=== PATIENT | female | born 1995 | race Caucasian/White ===

== ENCOUNTER 2019-04-21 15:40 | Emergency (ER) | payer SELFPAY ==
[~2019-04-21] VITALS: Ht 154.9 cm; Wt 58.1 kg
[2019-04-21 15:46] VITALS: BP 140/98
[2019-04-21 18:36] LABS: Urine Bacteria FEW /hpf (None Seen); Urine Blood Negative /uL (Negative); Urine Specific Gravity 1.022 (1.001-1.035); Urine WBC 5 /hpf (0 - 5)
[2019-04-21] MEDS ORDERED: PHENAZOPYRIDINE HCL 100 MG TAB PO ONE (19:15)
[2019-04-21] MEDS ORDERED: cefTRIAXone SOD 1,000 MG VL IM ONE (19:15)
== END 2019-04-21 20:01 | disposition home or self-care (01) ==
LOC: ER 15:44
DX: N39.0 Urinary tract infection, site not specified (principal); Z88.2 Allergy status to sulfonamides
CPT/HCPCS: 81001; 81025; 93005; 96372; 99284; J0696